=== PATIENT | female | born 1970 | race Caucasian/White ===

== ENCOUNTER 2023-12-29 06:15 | Day surgery (SDC) | payer BC, SELFPAY ==
[2023-12-19 08:53] VITALS: BMI 31.4
[2023-12-19 10:16] LABS: PT 13.4 Sec (11.4-14.6)
[2023-12-19 10:17] LABS: APTT 26.5 Sec (23.4-35.0)
[2023-12-19 10:29] LABS: Hematocrit 39.7 % (37.0-47.0); Hemoglobin 13.5 g/dL (12.0-16.0); Mean Corpuscular Hgb 30.8 pg (27.0-31.0); Mean Corpuscular Volume 90.4 fL (81.0-99.0); Mean Platelet Volume 9.9 fL (7.4-10.4); Platelet Count 253 10^3/uL (130-400); Red Blood Cell Count 4.39 10^6/uL (4.20-5.40); Red Cell Dist. Width 12.3 % (11.5-14.5); White Blood Cell Count 5.3 10^3/uL (4.8-10.8)
[2023-12-19 10:44] LABS: Blood Urea Nitrogen 13 mg/dl (7-17); Calcium 9.4 mg/dl (8.4-10.2); Carbon Dioxide 29 mmol/L (22-30); Chloride 104 mmol/L (98-107); Estimated Creatinine Clearance 79 ml/min; Glucose 131 mg/dl (70-99); Potassium 3.9 mmol/L (3.5-5.1); Sodium 138 mmol/L (135-145); eGFR > 60.00
[2023-12-29] VITALS (8 sets, daily range): BP systolic 103–141; BP diastolic 70–81
== END 2023-12-29 10:15 | disposition home or self-care (01) ==
LOC: SDS 06:15
PROVIDERS: ATTENDING PHYSICIAN Specialist; FAMILY PHYSICIAN Nurse Practitioner Primary Care
DX: N20.0 Calculus of kidney (principal)
CPT/HCPCS: 50590; 36415; 80048; 85027; 85610; 85730; 93005

== ENCOUNTER → 2024-01-05 09:54 | Outpatient (REF) | payer BC, SELFPAY | LOC: RAD 09:54 | PROVIDERS: ATTENDING PHYSICIAN Specialist; FAMILY PHYSICIAN Nurse Practitioner Primary Care | DX: N20.0 Calculus of kidney (principal) | CPT/HCPCS: 74018 ==